=== PATIENT | male | born 1955 | race Caucasian/White ===

== ENCOUNTER 2022-09-28 13:01 | Inpatient (IN) | payer MEDICARE ==
[~2022-09-28] VITALS: Ht 188 cm; Wt 72.1 kg
--- NOTE | 2022-09-28 13:41 | NUR ---
tong collected and sent to lab
[2022-09-28] MEDS ORDERED: METO-356 PO (13:48)
[2022-09-28] MEDS ORDERED: RISP2TAB5 PO (13:48)
[2022-09-28] MEDS ORDERED: OLAN10TA3 PO (13:48)
[2022-09-28] MEDS ORDERED: CLOP75TA15 PO (13:48)
[2022-09-28] MEDS ORDERED: FAMO10TA41 PO (13:48)
[2022-09-28] MEDS ORDERED: ATOR20TA PO (13:48)
[2022-09-28] MEDS ORDERED: BLOOD SUGAR DIAGNOSTIC 1 EACH STRIP VI ONE (16:30)
[2022-09-28] MEDS ORDERED: TEMAZEPAM 7.5 MG CAPSULE PO PRN (16:30)
[2022-09-28] MEDS ORDERED: MAG HYDROX/AL HYDROX/SIMETH 30 ML LIQUID UDC PO PRN (16:30)
[2022-09-28] MEDS ORDERED: MAGNESIUM HYDROXIDE 30 ML LIQUID UDC PO PRN (16:30)
[2022-09-28] MEDS ORDERED: ACETAMINOPHEN 325 MG TABLET PO PRN (16:30)
--- NOTE | 2022-09-28 16:36 | NUR ---
GPS: Nursing Notes: Admitting Notes: Patient is admitted on 5150 GD due to being delusional and hallucinating, believing that he is on a conference call, his daughter found him face down at his home with altered level of consciousness prior to bring him to ER. On face to face assessment, patient is A/Ox3, cooperative with staff, stated "Yes, I am hearing voices, but they come and go now..", depressed mood and withdrawn affect, gets easily anxious when questioned by staff, denies SI/HI, unable to formulate a viable plan for self care, unkempt appearance, poor grooming. Oriented to the unit, admitting package with Patient's Rights Handbook given to the patient. Dr. Bright and Dr. Remi Valente informed of admission by charge nurse.
[2022-09-28 16:40] VITALS: BP 124/61
[2022-09-28 20:29] VITALS: BP 102/53
[2022-09-29 08:00] VITALS: BP 133/77
[2022-09-29] MEDS: CLOPIDOGREL 75 MG TABLET PO SCH ×2 (08:56→12:39)
[2022-09-29] MEDS: risperiDONE 2 MG TABLET PO SCH ×2 (08:56→12:38)
[2022-09-29] MEDS: OLANZAPINE 5 MG TABLET PO SCH ×2 (08:57→16:46)
[2022-09-29] MEDS ORDERED: FAMOTIDINE 20 MG TABLET PO SCH (09:00)
[2022-09-29] MEDS ORDERED: METOPROLOL SUCCINATE XL 25 MG TAB.SR.24H PO SCH ×2 (09:00)
[2022-09-29] MEDS ORDERED: risperiDONE 0.25 MG TABLET PO SCH (09:00)
[2022-09-29 09:38] LABS: HEMATOCRIT 47.8 % (36.7-47.1); MEAN CORPUSCULAR VOLUME 90.1 fL (73.0-96.2); PLATELET COUNT (AUTO) 169 K/uL (152-348)
[2022-09-29 10:14] LABS: ALANINE AMINOTRANSFERASE 37 U/L (16-63); ALKALINE PHOSPHATASE 82 U/L (50-136); ASPARTATE AMINOTRANSFERASE 14 U/L (15-37); BILIRUBIN,TOTAL 0.9 mg/dL (0.2-1.0); CARBON DIOXIDE 30 mmol/L (21-32); CHLORIDE 108 mmol/L (98-107); CREATININE 0.4 mg/dL (0.6-1.3); GLUCOSE 102 mg/dL (74-106); TOTAL PROTEIN, SERUM 6.8 g/dL (6.4-8.2); UREA NITROGEN, BLOOD 15 mg/dL (7-18)
--- NOTE | 2022-09-29 11:31 | NUR ---
WILLIS Initial Discharge Note: Pt currently resides at home alone located at [address] [place] [id number]. This is the pt's [address] address. WILLIS was unable to ascertain further information. It is uncertain at this time if pt will return home upon discharge. Pt does not have a DPOA or conservator. Pt stated his daughter, Lacie ([phone]) only helps with groceries. WILLIS will continue to work with pt, his daughter and MD to ensure a safe and proper discharge plan.
[2022-09-29] MEDS ORDERED: METO25TA6 PO (11:32)
--- NOTE | 2022-09-29 11:34 | NUR ---
Firearms Report: Oral And Maxillofacial Surgeon completed and submitted a [employer] firearms report for 5150 grave disability certifications. A copy of report has been placed in patient chart.
[2022-09-29] MEDS: FAMOTIDINE 20 MG TABLET PO SCH (12:37)
[2022-09-29] MEDS: METOPROLOL TARTRATE 25 MG TABLET PO SCH ×2 (12:38→20:53)
[2022-09-29 16:03] VITALS: BP 91/43
--- NOTE | 2022-09-29 16:08 | NUR ---
GPS: Nursing Notes: Thought Disorder: Patient is awake and responding to his name, isolative and withdrawn in his room, no interaction with peers, internally preoccupied, stated "I hear voices, but they come and goes...", unable to formulate a viable plan for self care, resistant with nursing care, refusing to participate in therapeutic groups, continue to monitor for safety continue with treatment plan.
[2022-09-29 17:33] LABS: THYROID STIMULATING HORMONE 1.208 mIU/mL (0.358-3.740)
[2022-09-29 20:49] VITALS: BP 93/50
[2022-09-29] MEDS: ATORVASTATIN 20 MG TABLET PO SCH (20:53)
[2022-09-29 21:00] VITALS: BP 103/59
--- NOTE | 2022-09-29 21:05 | NUR ---
GPS: Pt.in his room and tends to isolate self and is withdrawn. Took bedtime med.with little persuasion from staff. Unkempt and disheveled looking,refuses to shower when asked. Denies wanting to harm self but continues to hear voices but refuses to talk about it. Re-assured prn. Safe environment provided. Will continue to monitor.
--- NOTE | 2022-09-30 07:23 | NUR ---
GPS: Patient in bed, awake, flat affect selective mute. No S/S of discomforts noted.
[2022-09-30] MEDS: CLOPIDOGREL 75 MG TABLET PO SCH ×2 (08:16→08:48)
[2022-09-30] MEDS: FAMOTIDINE 20 MG TABLET PO SCH ×2 (08:16→08:48)
[2022-09-30] MEDS: OLANZAPINE 5 MG TABLET PO SCH ×3 (08:16→17:00)
[2022-09-30] MEDS: METOPROLOL TARTRATE 25 MG TABLET PO SCH ×2 (08:16→21:06)
[2022-09-30] MEDS: risperiDONE 2 MG TABLET PO SCH ×2 (08:17→08:48)
[2022-09-30 08:18] VITALS: BP 107/46
--- NOTE | 2022-09-30 11:24 | NUR ---
GPS: Patient in bed, flat affect, withdrawn, selective mute. Morning care provided with verbal prompting, patient seen by PT for evaluation. Patient refused morning medications. buffet attendant aware. Patient is currently free from pain or any discomfort. Emotional support provided. Fall and safety precautions implemented.
--- NOTE | 2022-09-30 11:31 | NUR ---
WILLIS Family Contact: WILLIS contacted pt's daughter, Lacie ([phone]) and left a voicemail for a call back regarding pt's discharge plan.
--- NOTE | 2022-09-30 12:15 | NUR ---
SW Family Contact: Pt's daughter, Lacie ([phone]) returned this senior technical writer's call and discussed pt's discharge and treatment plan. Lacie shared a lot of her concerns with her father's mental health struggles. Lacie informed this SW and Elsy PEDRO that pt has been experiencing hallucinations and delusions for the past few weeks. Lacie stated the pt listens to his auditory hallucinations. Lacie is open to a intermediate facility upon discharge.
[2022-09-30 15:42] VITALS: BP 112/49
[2022-09-30 20:00] VITALS: BP 126/54
[2022-09-30] MEDS: ATORVASTATIN 20 MG TABLET PO SCH (21:06)
--- NOTE | 2022-09-30 21:30 | NUR ---
Received patient in bed, alert oriented, no complain of pain, patient cooperative with medication and care, Patient took his BP and cholesterol medication, cont to monitor.
[2022-10-01 07:49] VITALS: BP 116/46
[2022-10-01] MEDS: OLANZAPINE 5 MG TABLET PO SCH ×2 (08:54→17:17)
[2022-10-01] MEDS: FAMOTIDINE 20 MG TABLET PO SCH (08:54)
[2022-10-01] MEDS: METOPROLOL TARTRATE 25 MG TABLET PO SCH ×2 (08:55→20:32)
[2022-10-01] MEDS: risperiDONE 2 MG TABLET PO SCH (08:56)
[2022-10-01] MEDS: CLOPIDOGREL 75 MG TABLET PO SCH (08:56)
--- NOTE | 2022-10-01 10:05 | NUR ---
Patient had [address], personal financial representative Yuli Siu gave probable cause for GD only.
--- NOTE | 2022-10-01 13:00 | NUR ---
Gps/Employment Attorney- Stayed in bed most of the day, unable to stand up per P.T. during his therapy/activity , bilateral hand wealth management manager weak, able to feed self after set up, able to hold on to his cup. Compliant with routine meds. .Adequate fluid intake ,Making simple needs known
[2022-10-01 15:57] VITALS: BP 100/46
[2022-10-01 19:52] VITALS: BP 106/50
[2022-10-01] MEDS: ATORVASTATIN 10 MG TABLET PO SCH (20:35)
--- NOTE | 2022-10-02 01:55 | NUR ---
Received patient in bed. Poor eye contact and not wanting to engage in any meaningful conversation. Encouraged patient to turn during the night. Patient provided with a snack but refused it. Juanita care done PRN. Safety Stratiges are in place. No acute distress noted at this time.
[2022-10-02 07:30] VITALS: BP 102/57
[2022-10-02] MEDS: CLOPIDOGREL 75 MG TABLET PO SCH (08:50)
[2022-10-02] MEDS: OLANZAPINE 5 MG TABLET PO SCH ×2 (08:50→18:20)
[2022-10-02] MEDS: FAMOTIDINE 20 MG TABLET PO SCH (08:50)
[2022-10-02 16:05] VITALS: BP 104/48
--- NOTE | 2022-10-02 18:30 | NUR ---
Patient is doing well. He is compliant with meds, but still isolated in his room. No behavior issues observed. Will continue to monitor patient for safety.
[2022-10-02 19:54] VITALS: BP 106/55
[2022-10-02] MEDS: ATORVASTATIN 10 MG TABLET PO SCH (20:36)
--- NOTE | 2022-10-02 22:53 | NUR ---
Received patient in his room awake but not willing to talk or let his needs known. This expert medical writer stayed in the room and encouraged the patient to answer a few simple questions. Eventually, the patient asked for water and agreed to be moved and repositioned in the bed. The patient would not confirm or deny feelings of SI. A shower was offered as well as as PRN medication for sleep. Both were refused. Safety Stratiges are in place and frequent monitoring of the patients needs are ongoing. No acute distress noted at this time.
[2022-10-03 07:48] VITALS: BP 92/44
[2022-10-03] MEDS: CLOPIDOGREL 75 MG TABLET PO SCH (08:25)
[2022-10-03] MEDS: OLANZAPINE 5 MG TABLET PO SCH ×2 (08:25→16:15)
[2022-10-03] MEDS: FAMOTIDINE 20 MG TABLET PO SCH (08:25)
[2022-10-03] MEDS: ENSURE ENLIVE (VAN) 240 ML LIQUID PO SCH (11:49)
[2022-10-03] MEDS: MIRALAX 17 GM POWD.PACK PO SCH ×2 (14:00→16:14)
--- NOTE | 2022-10-03 14:14 | NUR ---
GPS: Nursing Notes: Thought Disorder: Patient is awake and responding to his name, impaired judgment, internally preoccupied, paranoid behavior, constantly questioning his medications, needs a lot of prompting to be compliant with his medications, argumentative, poor anger management, c/o constipation, but refused MOM after opening the package, Megan Delgado, SURVEY CHIEF ordered Miralax, explained medication to patient when agree to take it, stated "I am not going to take it because I put it in my mouth..", continue with paranoid behavior, redirected during shift, unable to formulate a viable plan for self care, stated "Yes, I am hearing voices...don't worried about..", denies SI/HI, continue to monitor for safety, on fall precautions, continue with treatment plan.
[2022-10-03 16:22] VITALS: BP 112/60
[2022-10-03 20:00] VITALS: BP 109/56
[2022-10-03] MEDS: risperiDONE 2 MG TABLET PO SCH (23:24)
[2022-10-03] MEDS: ATORVASTATIN 10 MG TABLET PO SCH (23:24)
[2022-10-03] MEDS: CLONAZEPAM 0.5 MG TABLET PO PRN (23:24)
[2022-10-04 08:01] VITALS: BP 98/43
[2022-10-04] MEDS: CLOPIDOGREL 75 MG TABLET PO SCH (08:38)
[2022-10-04] MEDS: OLANZAPINE 5 MG TABLET PO SCH ×2 (08:39→16:39)
[2022-10-04] MEDS: FAMOTIDINE 20 MG TABLET PO SCH (08:39)
[2022-10-04] MEDS: MIRALAX 17 GM POWD.PACK PO SCH (08:39)
[2022-10-04] MEDS: ENSURE ENLIVE (VAN) 240 ML LIQUID PO SCH (08:39)
--- NOTE | 2022-10-04 12:27 | NUR ---
GPS: Nursing Notes: Thought Disorder: Patient is awake and responding to his name, argumentative at times, needs prompting to be compliant with his medications, needs assistance with ADL's, stated "Yes, I always hear voices..They come and go..." Unable to formulate a viable plan for self care, gets easily anxious when redirected, gets easily irritable when questioned by staff, denies SI, continue to monitor for safety, verbally beverly for safety, continue with treatment plan.
[2022-10-04] MEDS: risperiDONE 1 MG TABLET PO SCH (16:39)
[2022-10-04 16:47] VITALS: BP 99/52
[2022-10-04 19:36] VITALS: BP 96/51
[2022-10-04] MEDS: CLONAZEPAM 0.5 MG TABLET PO PRN (20:38)
[2022-10-04] MEDS: ATORVASTATIN 10 MG TABLET PO SCH (20:38)
[2022-10-04] MEDS: risperiDONE 2 MG TABLET PO SCH (20:39)
--- NOTE | 2022-10-05 00:50 | NUR ---
Pt stayed in his room for almost entire shift. Interacts when engaged by staff. Compliant with care and verbal responses. Safety measures in place.
[2022-10-05 07:39] VITALS: BP 119/58
[2022-10-05] MEDS: risperiDONE 1 MG TABLET PO SCH (08:33)
[2022-10-05] MEDS: FAMOTIDINE 20 MG TABLET PO SCH (08:33)
[2022-10-05] MEDS: OLANZAPINE 5 MG TABLET PO SCH (08:33)
[2022-10-05] MEDS: CLOPIDOGREL 75 MG TABLET PO SCH (08:33)
[2022-10-05] MEDS: ENSURE ENLIVE (VAN) 240 ML LIQUID PO SCH (08:34)
[2022-10-05] MEDS: MIRALAX 17 GM POWD.PACK PO SCH (08:35)
--- NOTE | 2022-10-05 14:47 | NUR ---
GPS: Nursing Notes: Thought Disorder: Patient is awake and responding to his name, compliant with his medications, but suspicious about the medications, paranoid behavior, internally preoccupied, stated "Yes, I always hear voices..", needs prompting to participate in therapeutic groups, in the patio - interactive with recreational therapist, flat affect, no interactions with peers, unable to formulate a viable plan for self care, denies SI/HI, continue to monitor for safety, continue with treatment plan.
[2022-10-05] MEDS: risperiDONE 2 MG TABLET PO SCH ×2 (16:21→20:26)
--- NOTE | 2022-10-05 17:02 | NUR ---
GPS: Nursing Notes: To Schedule MRI: Staff spoke with Hector from MRI department to schedule MRI. Hector will call tomorrow morning to [facility] to schedule the MRI for the patient, staff to endorse to incoming shift and staff to follow up tomorrow, continue with treatment plan.
[2022-10-05 17:32] VITALS: BP 123/46
[2022-10-05 19:47] VITALS: BP 116/51
[2022-10-05] MEDS: ATORVASTATIN 10 MG TABLET PO SCH (20:26)
[2022-10-05] MEDS: CLONAZEPAM 0.5 MG TABLET PO PRN (20:26)
[2022-10-06 08:00] VITALS: BP 127/67
[2022-10-06] MEDS: ENSURE ENLIVE (VAN) 240 ML LIQUID PO SCH (08:52)
[2022-10-06] MEDS: MIRALAX 17 GM POWD.PACK PO SCH (08:52)
[2022-10-06] MEDS: FAMOTIDINE 20 MG TABLET PO SCH (08:52)
[2022-10-06] MEDS: CLOPIDOGREL 75 MG TABLET PO SCH (08:52)
[2022-10-06] MEDS: risperiDONE 2 MG TABLET PO SCH ×3 (08:52→20:24)
--- NOTE | 2022-10-06 14:52 | NUR ---
GPS: Nursing Notes: Thought Disorder: Patient is awake and responding to his name, cooperative with nursing care, A/Ox3, interactive with staff, no interactions with peers, argumentative at times, questioning his medications, unable to formulate a viable plan for self care, unkempt appearance, internally preoccupied, continue to monitor for safety, continue with treatment plan.
[2022-10-06 16:00] VITALS: BP 138/67
--- NOTE | 2022-10-06 17:11 | NUR ---
Pt refused Lower extremity arterial dopp. Said hes had it done before.
[2022-10-06 19:45] VITALS: BP 126/62
[2022-10-06] MEDS: CLONAZEPAM 0.5 MG TABLET PO PRN (20:24)
[2022-10-06] MEDS: ATORVASTATIN 10 MG TABLET PO SCH (20:24)
--- NOTE | 2022-10-07 02:03 | NUR ---
Patient is AOx3, calm and compliant with care. Pt denies SI/HI, and is contracted for safety. Pt is ambulatory with assistance. Uses urinal for voiding, and asks for assistance when wanting to have a BM. He is at risk for falling d/t having an unsteady gait and balance. Pt stayed in his room for the entire shift, and although he has short/minimal communication with his roommate, pt chooses to stay in his bed. Safety measures implemented. Will continue to monitor.
[2022-10-07 08:49] VITALS: BP 114/53
[2022-10-07] MEDS: risperiDONE 2 MG TABLET PO SCH ×3 (09:25→20:19)
[2022-10-07] MEDS: FAMOTIDINE 20 MG TABLET PO SCH (09:25)
[2022-10-07] MEDS: CLOPIDOGREL 75 MG TABLET PO SCH (09:25)
[2022-10-07] MEDS: MIRALAX 17 GM POWD.PACK PO SCH (09:25)
[2022-10-07] MEDS: ENSURE ENLIVE (VAN) 240 ML LIQUID PO SCH (09:26)
[2022-10-07 15:10] VITALS: BP 113/52
--- NOTE | 2022-10-07 18:20 | NUR ---
Patient is depressed, calm and compliant with care and medications. Pt denies SI/HI, and is contracted for safety. Pt is able to voice needs and needs assistance with ADLs.Pt is continent but needs dietetic assistant to use toile due to unsteady gait. Pt asked to be transferred to geriatric chair to attend group activities. Reassurance provide. Safety measures in place Continue to monitor for safety , continue with treatment plan.
[2022-10-07 20:00] VITALS: BP 106/57
[2022-10-07] MEDS: ATORVASTATIN 10 MG TABLET PO SCH (20:20)
--- NOTE | 2022-10-07 22:07 | NUR ---
GPS: Pt.is less isolative and withdrawn. Observed to be watching tv during shift change. Denies SI. Med.compliant. Fall precautions observed. Re-assured prn.
[2022-10-08 08:21] VITALS: BP 124/72
[2022-10-08] MEDS: MIRALAX 17 GM POWD.PACK PO SCH ×2 (09:00→09:24)
[2022-10-08] MEDS: CLOPIDOGREL 75 MG TABLET PO SCH (09:20)
[2022-10-08] MEDS: risperiDONE 2 MG TABLET PO SCH ×3 (09:20→20:19)
[2022-10-08] MEDS: FAMOTIDINE 20 MG TABLET PO SCH (09:24)
[2022-10-08] MEDS: ENSURE ENLIVE (VAN) 240 ML LIQUID PO SCH (09:25)
--- NOTE | 2022-10-08 14:28 | NUR ---
Gps/Train Control Technician- Stays in bed most of the time, quiet , sitting up @ the edge of bed , unable to stand up r/t weak legs. Compliant with am routine meds. Making his simple needs known .
[2022-10-08 15:27] VITALS: BP 96/54
[2022-10-08 20:00] VITALS: BP 120/57
[2022-10-08] MEDS: ATORVASTATIN 10 MG TABLET PO SCH (20:19)
[2022-10-09 07:45] VITALS: BP 106/48
[2022-10-09] MEDS: MIRALAX 17 GM POWD.PACK PO SCH (08:45)
[2022-10-09] MEDS: CLOPIDOGREL 75 MG TABLET PO SCH (08:45)
[2022-10-09] MEDS: risperiDONE 2 MG TABLET PO SCH ×3 (08:45→20:59)
[2022-10-09] MEDS: FAMOTIDINE 20 MG TABLET PO SCH (08:45)
[2022-10-09] MEDS: ENSURE ENLIVE (VAN) 240 ML LIQUID PO SCH (08:46)
--- NOTE | 2022-10-09 15:44 | NUR ---
Gps/Mine Car Mechanic-Assisted with urinal placement, urgency noted, extremely weak lower ext. Compliant with routine meds. ,denies any discomfort, had beed cooperative with staff providing his care
[2022-10-09 15:59] VITALS: BP 109/57
[2022-10-09] MEDS: ATORVASTATIN 10 MG TABLET PO SCH (20:59)
[2022-10-09 21:03] VITALS: BP 117/67
[2022-10-10 07:27] VITALS: BP 105/57
[2022-10-10] MEDS: MIRALAX 17 GM POWD.PACK PO SCH (09:00)
[2022-10-10] MEDS: CLOPIDOGREL 75 MG TABLET PO SCH (09:25)
[2022-10-10] MEDS: ENSURE ENLIVE (VAN) 240 ML LIQUID PO SCH (09:25)
[2022-10-10] MEDS: FAMOTIDINE 20 MG TABLET PO SCH (09:25)
[2022-10-10] MEDS: risperiDONE 2 MG TABLET PO SCH ×3 (09:26→20:56)
--- NOTE | 2022-10-10 13:50 | NUR ---
Gps/Utility Bill Collection Clerk- OOb to chair, attending his group activity, fed self ind after set up. Pascual any discomfort. Cooperative with the staff providing his care
[2022-10-10 16:29] VITALS: BP 115/49
--- NOTE | 2022-10-10 17:59 | NUR ---
Gps/Orthotics Technician-Patient able to stay up in his hermann-chair till after lunch .Pm care was rendered, patient able to stand up with 1 person assist this afternoon. Compliance with with routine medications noted . Encouraged to try using the urinal when in bed, placed with in his reach .
[2022-10-10 19:43] VITALS: BP 108/51
[2022-10-10] MEDS: ATORVASTATIN 10 MG TABLET PO SCH (20:55)
--- NOTE | 2022-10-11 06:49 | NUR ---
Patient is less depressed, calm and compliant with care and medications. Pt denies SI/HI, and is contracted for safety. Pt is able to voice needs and needs less assistance with ADLs. Pt wants to help more with trying to do as much as he can with his ADLs. Pt is continent but needs social work assistant to use toile due to unsteady gait. Reassurance provide. Safety measures in place, Continue to monitor for safety , continue with treatment plan.
[2022-10-11 07:36] VITALS: BP 96/54
[2022-10-11] MEDS: CLOPIDOGREL 75 MG TABLET PO SCH (08:49)
[2022-10-11] MEDS: risperiDONE 2 MG TABLET PO SCH ×3 (08:49→20:39)
[2022-10-11] MEDS: MIRALAX 17 GM POWD.PACK PO SCH (08:50)
[2022-10-11] MEDS: FAMOTIDINE 20 MG TABLET PO SCH (08:50)
[2022-10-11] MEDS: ENSURE ENLIVE (VAN) 240 ML LIQUID PO SCH (08:50)
[2022-10-11 16:11] VITALS: BP 103/52
[2022-10-11 19:37] VITALS: BP 133/57
[2022-10-11] MEDS: CLONAZEPAM 0.5 MG TABLET PO PRN (20:38)
[2022-10-11] MEDS: ATORVASTATIN 10 MG TABLET PO SCH (20:38)
--- NOTE | 2022-10-12 05:06 | NUR ---
Pt remained in his bed for most of the night. He is ambulatory x1 assist. Pt is able to use his urinal by himself successfully. Safety measures in place.
[2022-10-12 07:38] VITALS: BP 127/62
[2022-10-12] MEDS: risperiDONE 2 MG TABLET PO SCH ×3 (09:09→20:32)
[2022-10-12] MEDS: CLOPIDOGREL 75 MG TABLET PO SCH (09:09)
[2022-10-12] MEDS: ENSURE ENLIVE (VAN) 240 ML LIQUID PO SCH (09:09)
[2022-10-12] MEDS: MIRALAX 17 GM POWD.PACK PO SCH (09:09)
[2022-10-12] MEDS: FAMOTIDINE 20 MG TABLET PO SCH (09:09)
--- NOTE | 2022-10-12 09:31 | NUR ---
WILLIS Family Contact: WILLIS contacted pt's daughter, Lacie ([phone]) and left a voicemail for a call back regarding pt's discharge plan on Wednesday, October 12, 2022 at 11AM to [facility] located at [address] [place] [address] ([phone]) as previously discussed. WILLIS will continue to follow-up.
--- NOTE | 2022-10-12 10:12 | NUR ---
SW Discharge Update: SW spoke with pt's daughter, Lacie ([phone]) regarding pt's discharge plan to [facility] located at [address] [place] [address] ([phone]) via Ambulance transportation at 11AM. Lacie stated she wants the pt to discharge to the doctor recommended facility, [facility] by covering psychiatrist, Dr. Dleacruz. Dr. Lau is aware.
--- NOTE | 2022-10-12 13:16 | NUR ---
GPS: Nursing Notes: Thought Disorder: Patient is awake and responding to his name, needs minimal assistance with ADL's, cooperative with nursing care, compliant with his medications, participating in therapeutic groups, unable to formulate a viable plan for self care, denies AH/VH, denies SI/HI, continue to monitor for safety, continue with treatment plan.
[2022-10-12 15:05] VITALS: BP 107/51
[2022-10-12 19:41] VITALS: BP 113/50
[2022-10-12] MEDS: ATORVASTATIN 10 MG TABLET PO SCH (20:32)
--- NOTE | 2022-10-13 06:15 | NUR ---
GPS: Pt.slept 6.15 last night. Denies AH/VH. Denies SI. Comes out of his room during the day and watches TV. Compliant with his scheduled meds. Safe environment provided. Needs attended.
[2022-10-13 08:06] VITALS: BP 103/40
[2022-10-13] MEDS: MIRALAX 17 GM POWD.PACK PO SCH (08:42)
[2022-10-13] MEDS: FAMOTIDINE 20 MG TABLET PO SCH (08:42)
[2022-10-13] MEDS: risperiDONE 2 MG TABLET PO SCH (08:42)
[2022-10-13] MEDS: CLOPIDOGREL 75 MG TABLET PO SCH (08:42)
[2022-10-13] MEDS: ENSURE ENLIVE (VAN) 240 ML LIQUID PO SCH (08:42)
--- NOTE | 2022-10-13 10:12 | NUR ---
WILLIS Discharge Note: Pt will be discharged to [facility] located at [address] [place] [id number] ([phone]) via Ambulance transportation at 11AM. WILLIS spoke with Preethi alexandra [phone] at the facility who states they are ready to accept the patient today. Pt is aware and agreeable with discharge plan. Pts daughter, Lacie ([phone]) is aware and agreeable with the discharge plan. Pt is alert and oriented x2, is unable to plan for self-care at this time. However, pt is willing to accept care at SNF. Pt denies any suicidal or homicidal ideation. Pt will follow-up at the facility with Psychiatrist, Dr. Bustillos and Parking Lot Manager, Dr. Daniels. Pt presents with calm mood and congruent affect. PHARMACY: [facility] ([phone]) [address] [place] [address].
--- NOTE | 2022-10-13 11:38 | NUR ---
GPS: Nursing Notes: Discharge Notes: Patient is awake and responding to his name, cooperative with nursing care, compliant with his medications, needs assistance with ADL's, on fall precautions, weak and unsteady gait, needs assistance and fww to ambulate some steps, denies SI/HI, denies AH/VH, denies pain or discomfort, denies SOB. Patient discharge to [facility] at [address] [place], [place] [id number] . Patient's daughter - Lacie informed of discharge by social research assistant, report given to Ken - RN malt liquors sales supervisor, transported to facility via ambulance. Patient will follow up with Dr. Delacruz (psychiatrist) and Dr. Daniels (clinical services specialist) for aftercare at the facility.
== END 2022-10-13 11:30 | DRG 885 ==
LOC: ER 13:01 → GPS 15:56
PROVIDERS: ADMIT Nurse Practitioner Psychiatric/Mental Health; ATTEND Internal Medicine
DX: F29 Unspecified psychosis not due to a substance or known physiological condition (principal); E78.5 Hyperlipidemia, unspecified; M21.372 Foot drop, left foot; M21.371 Foot drop, right foot; M47.817 Spondylosis without myelopathy or radiculopathy, lumbosacral region; F20.9 Schizophrenia, unspecified; I25.10 Atherosclerotic heart disease of native coronary artery without angina pectoris; Z95.5 Presence of coronary angioplasty implant and graft; I25.2 Old myocardial infarction; K21.9 Gastro-esophageal reflux disease without esophagitis; Z79.02 Long term (current) use of antithrombotics/antiplatelets; Z79.899 Other long term (current) drug therapy; F32.A Depression, unspecified; Z91.199 Patient's noncompliance with other medical treatment and regimen due to unspecified reason; I11.9 Hypertensive heart disease without heart failure; R26.81 Unsteadiness on feet; M99.53 Intervertebral disc stenosis of neural canal of lumbar region; M51.36 Other intervertebral disc degeneration, lumbar region; H05.20 Unspecified exophthalmos; F94.0 Selective mutism; R73.03 Prediabetes; Z91.51 Personal history of suicidal behavior; Z91.81 History of falling; F41.9 Anxiety disorder, unspecified; Z20.822 Contact with and (suspected) exposure to COVID-19
CPT/HCPCS: 36415; 72148; 84443; 85025; 93005; A4663